=== PATIENT | female | born 1965 | race African-American/Black ===

== ENCOUNTER 2021-04-01 08:33 | Emergency (ER) | payer OTHER ==
[~2021-04-01] VITALS: Ht 160 cm; Wt 77.6 kg
[~2021-04-01 08:33] MED LIST: AZITHROMYCIN 2250 MG PO
[2021-04-01 08:51] VITALS: BP 160/64
[2021-04-01] MEDS ORDERED: ATORVASTATIN CA10 MG PO (08:56)
[2021-04-01] MEDS ORDERED: LOSARTAN POTAS100 MG PO (08:56)
[2021-04-01] MEDS ORDERED: NORVASC5 MG PO (08:56)
[2021-04-01] MEDS ORDERED: METOPROLOL SUCC50 MG PO (08:56)
[2021-04-01 10:40] LABS: ABSOLUTE NEUTROPHILS 5.8 thou/uL (1.4-8.2); BASOPHILS 0.3 % (0.0-2.0); EOSINOPHILS 0.7 % (0.0-3.0); HEMATOCRIT 40.6 % (37.0-47.0); HEMOGLOBIN 13.6 gm/dL (12.0-15.0); LYMPHOCYTES 19.7 % (24.0-44.0); MCH 29.6 pg (26.0-34.0); MCHC 33.5 g/dL (28.0-37.0); MCV 88.5 fL (80.0-100.0); MONOCYTES 7.2 % (1.0-8.0); PLATELET COUNT 287 thou/uL (150-400); POLYS 72.1 % (36.0-66.0); RBC 4.58 mil/uL (4.20-5.00); RDW 12.8 % (10.5-14.5)
[2021-04-01 10:57] LABS: ANION GAP 8 mmol/L (7-16); BUN 8 mg/dL (7-18); CALCIUM 9.5 mg/dL (8.5-10.1); CHLORIDE 101 mmol/L (98-107); CO2 30 mmol/L (21-32); CREATININE 1.2 mg/dL (0.6-1.0); GLUCOSE 106 mg/dL (74-106); POTASSIUM 3.7 mmol/L (3.5-5.1); SODIUM 139 mmol/L (136-145)
[2021-04-01 11:07] LABS: ALBUMIN 4.1 g/dL (3.4-5.0); SGOT 33 U/L (15-37); SGPT 38 U/L (14-59); TOTAL BILIRUBIN 0.9 mg/dL (0.2-1.0); TOTAL PROTEIN 8.2 g/dL (6.4-8.2); TROPONIN-I <0.06 ng/mL (<0.06)
--- NOTE | 2021-04-01 15:53 | EKG ---
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: : 1965 Requested By: Lexus Shirley Order Number: [id number] MD: Onel Biswas Measurements Intervals [place] Rate: 89 P: 57 DC: 167 QRS: -32 QRSD: 99 T: 9 QT: 371 QTc: 452 Interpretive Statements Sinus tachycardia Ventricular trigeminy Poor R wave progression Compared to ECG 09/30/2016 09:42:03 Ventricular premature complex(es) now present Electronically Signed On 04-01-2021 15:52:48 CDT by Onel Biswas [email or web address] <ELECTRONICALLY SIGNED> By: Onel Biswas MD, [facility] 04/01/21 [id number] Onel Biswas MD, [facility] /EPI
== END 2021-04-01 14:08 | disposition home or self-care (01) ==
LOC: ER 08:33
PROVIDERS: Emergency Medicine
DX: R07.89 Other chest pain (principal); R06.00 Dyspnea, unspecified; Z20.822 Contact with and (suspected) exposure to COVID-19; Z79.891 Long term (current) use of opiate analgesic; Z79.899 Other long term (current) drug therapy